=== PATIENT | male | born 1950 | race Caucasian/White ===

== ENCOUNTER 2023-02-24 14:28 | Emergency (ER) | payer OTHER ==
[2023-02-24 14:42] VITALS: BP 150/65; O2SAT 97
--- NOTE | 2023-02-24 14:58 | ED Physician Documentation ---
PD HPI HEENT - Stated complaint Stated Complaint: FB LT EAR - Chief complaint Chief Complaint: Heent - History obtained from History obtained from: Patient - Additional information Additional information: Thinks he may have a small piece of his hearing aid stuck in the left ear canal. PD PAST MEDICAL HISTORY - Allergies Allergies/Adverse Reactions: Allergies Allergy/AdvReac Type Severity Reaction Status Date / Time acetaminophen [From [place]] Allergy Hives Verified 02/24/23 14:33 hydrocodone [From [place]] Allergy Hives Verified 02/24/23 14:33 Iodinated Contrast Media Allergy Hives Verified 02/24/23 14:33 PD ED PE NORMAL - Vitals Vital signs reviewed: Yes - General General: Alert and oriented X 3, No acute distress - HEENT HEENT: Other (On initial exam I could not tell if there was a foreign body in the left ear canal as there was a fair amount of cerumen. After cerumen removal there was no foreign body.) - Neck Neck: Supple, no meningeal sign, No bony TTP - Neuro Neuro: Alert and oriented X 3, Normal speech Results - Vitals Vitals: Vital Signs - 24 hr 02/24/23 14:33 Heart Rate 71 Respiratory 16 Rate Blood Pressure 150/65 H O2 Saturation 97 Oxygen O2 Source Room air Procedures - General procedure General procedure: Cerumen in the left ear was removed with syringe irrigation with success. Departure - Departure Disposition: 01 Home, Self Care Clinical Impression: Impacted cerumen of left ear Condition: Good Record reviewed to determine appropriate education?: Yes Instructions: ED Earwax Removal Comments: No evidence of foreign body in the left ear. Return for new or worsening symptoms.
== END 2023-02-24 15:00 | disposition home or self-care (01) ==
LOC: ED 14:28
DX: H61.22 Impacted cerumen, left ear (principal)
CPT/HCPCS: 69209; 99281